=== PATIENT | female | born 1930 | race Two or more races ===

== ENCOUNTER 2018-09-19 23:32 | Emergency (ER) | payer OTHER ==
[~2018-09-19] VITALS: Ht 121.9 cm; Wt 36.3 kg
[2018-09-20] MEDS ORDERED: DICY20TA PO (03:35)
[2018-09-20] MEDS ORDERED: PROTONIX40 MG PO (03:35)
== END 2018-09-20 03:44 | disposition home or self-care (01) ==
LOC: ER 23:32
DX: K52.89 Other specified noninfective gastroenteritis and colitis (principal); K29.60 Other gastritis without bleeding